=== PATIENT | female | born 1925 | race Caucasian/White ===

== ENCOUNTER → 2016-08-04 | Outpatient (CLI) | payer MEDICARE, BC ==
[~2016-08-04] MED LIST: COLACE 100MG C100 MG PO; CORDARONE 200M200 MG PO; ELIQUIS2.5 MG PO; FUROSEMIDE20 MG PO; LEVAQUIN250 MG PO; LEVOTHYROXINE100 MCG PO; LOSARTAN POTAS100 MG PO; METOPROLOL SUCC25 MG PO; NORCO 5-325 TA1 EACH PO; NORVASC5 MG PO; RANITIDINE HCL150 M1 PO; VITAMIN D1000 UNIT PO
[2016-08-04 10:19] LABS: HEMOGLOBIN 13.9 gm/dl (12.3-15.3); RED BLOOD COUNT 4.29 M/UL (4.00-5.10); WHITE BLOOD COUNT 7.4 K/UL (4.5-11.0)
== END ==
LOC: LAB 09:25
PROVIDERS: Internal Medicine Cardiovascular Disease
DX: I48.92 Unspecified atrial flutter (principal); I25.10 Atherosclerotic heart disease of native coronary artery without angina pectoris
CPT/HCPCS: 36415; 71020; 80048; 85025

== ENCOUNTER 2016-08-06 09:32 | Outpatient (CLI) | payer MEDICARE, BC ==
[~2016-08-06] VITALS: Ht 160 cm; Wt 59.0 kg
[2016-08-06] MEDS ORDERED: CORDARONE 200M200 MG PO (10:08)
[2016-08-06] MEDS ORDERED: COLACE 100MG C100 MG PO (10:08)
[2016-08-06] MEDS ORDERED: ELIQUIS2.5 MG PO (10:09)
[2016-08-06] MEDS ORDERED: FUROSEMIDE20 MG PO (10:09)
[2016-08-06] MEDS ORDERED: NORCO 5-325 TA1 EACH PO (10:10)
[2016-08-06] MEDS ORDERED: LEVOTHYROXINE100 MCG PO (10:11)
[2016-08-06] MEDS ORDERED: METOPROLOL SUCC25 MG PO (10:13)
[2016-08-06] MEDS ORDERED: LOSARTAN POTAS100 MG PO (10:13)
[2016-08-06] MEDS ORDERED: RANITIDINE HCL150 M1 PO (10:14)
[2016-08-06] MEDS ORDERED: VITAMIN D1000 UNIT PO (10:15)
[2017-02-02] MEDS ORDERED: LEVAQUIN250 MG PO (11:52)
[2017-02-02] MEDS ORDERED: NORVASC5 MG PO (11:52)
== END 2016-08-07 10:45 | disposition home or self-care (01) ==
LOC: CATH 09:32 → PROG CARE 16:16 → CATH 08-07 10:45
DX: I48.92 Unspecified atrial flutter (principal); I47.1 Supraventricular tachycardia; I49.5 Sick sinus syndrome; I10 Essential (primary) hypertension; E03.9 Hypothyroidism, unspecified; I25.10 Atherosclerotic heart disease of native coronary artery without angina pectoris; Z95.5 Presence of coronary angioplasty implant and graft; Z86.79 Personal history of other diseases of the circulatory system; Z79.02 Long term (current) use of antithrombotics/antiplatelets; Z79.891 Long term (current) use of opiate analgesic; Z79.899 Other long term (current) drug therapy; M48.06 Spinal stenosis, lumbar region; Z95.1 Presence of aortocoronary bypass graft
CPT/HCPCS: 93005; 93609; 93621; C1730; C1733; C1766; J0360; J1644; J2250; J3010; J7040

== ENCOUNTER → 2016-09-06 | Outpatient (CLI) | payer MEDICARE, BC | LOC: HEART 5 13:04 | DX: R00.1 Bradycardia, unspecified (principal) ==